=== PATIENT | male | born 1985 | race Asian ===

== ENCOUNTER 2017-06-23 13:02 | Emergency (ER) | payer SELFPAY ==
[~2017-06-23] VITALS: Ht 170.2 cm; Wt 70.5 kg
[~2017-06-23 13:02] MED LIST: CYCLOBENZAPRINE 10 M; FLEXERIL10 MG PO; OXYCODONE HCL20 M1 PO; OXYCODONE HCL5 MG; TIZANIDINE HCL2 MG; ULTRAM50 MG PO; ZOFRAN ODT4 MG PO; ZOFRAN4 MG PO
[2017-06-23 13:49] LABS: HEMATOCRIT 45.2 % (38.0-50.0); MCH 27.9 PG (29.0-34.0); MCHC 33.8 G/DL (30.0-36.0); MCV 82.3 FL (86-99); MEAN PLAT.VOLUME 8.9 uM^3 (9.0-12.4); PLATELET COUNT 541 K/uL (156-360); RBC DIS.WIDTH-CV 12.6 % (11.8-14.6); RBC DIS.WIDTH-SD 37.9 % (39-53); RED BLOOD COUNT 5.49 M/uL (4.00-5.50)
[2017-06-23 13:58] LABS: CHLORIDE 99 mEq/L (99-109); POTASSIUM 3.5 mEq/L (3.7-5.4); SODIUM 135 mEq/L (136-147)
[2017-06-23 14:00] LABS: GLUCOSE 116 mg/dL (70-99)
[2017-06-23 14:01] LABS: ANION GAP 14 MEQ/L (2-14)
[2017-06-23 14:02] LABS: TOTAL BILIRUBIN 0.6 mg/dL (0.0-1.0)
[2017-06-23 14:04] LABS: ALKALINE PHOSPHATASE 68 IU/L (3-129); GFR ESTIMATE (CALCULATED) > 59 mL/min/
[2017-06-23 14:05] LABS: UREA NITROGEN (BUN) 13 mg/dL (9-23)
[2017-06-23 14:24] LABS: LIPASE 30 U/L (1.0-51.0)
[2017-06-23] MEDS ORDERED: ZOFRAN ODT4 MG PO (19:05)
[2017-06-23] MEDS ORDERED: PERCOCET 2.51 TABLET PO (19:05)
[2017-06-23] MEDS ORDERED: PHENERGAN25 MG PR (20:08)
[2017-06-23] MEDS ORDERED: TRAMADOL HCL50 MG PO (20:09)
[2017-06-23 20:31] VITALS: BP 116/63
== END 2017-06-23 20:32 | disposition home or self-care (01) ==
LOC: EME 13:02
DX: K80.20 Calculus of gallbladder without cholecystitis without obstruction (principal)
CPT/HCPCS: 74177; 80053; 81003; 83690; 85027; 99281; 99285; J1170; J2270; J2405; J7030; J7050